=== PATIENT | female | born 1940 | race Caucasian/White ===

== ENCOUNTER → 2023-11-11 16:24 | Outpatient (REF) | payer OTHER, SELFPAY | LOC: RAD 16:24 | PROVIDERS: ATTENDING PHYSICIAN Physician Assistant; FAMILY PHYSICIAN Internal Medicine Geriatric Medicine | DX: M06.9 Rheumatoid arthritis, unspecified (principal); M25.519 Pain in unspecified shoulder | CPT/HCPCS: 73030 ==

== ENCOUNTER → 2025-02-03 13:20 | Outpatient (REF) | payer OTHER, SELFPAY | LOC: RAD 13:20 | PROVIDERS: ATTENDING PHYSICIAN Internal Medicine Rheumatology; FAMILY PHYSICIAN Internal Medicine Geriatric Medicine | DX: M81.0 Age-related osteoporosis without current pathological fracture (principal); Z13.820 Encounter for screening for osteoporosis | CPT/HCPCS: 77080 ==